=== PATIENT | female | born 1950 | race Caucasian/White ===

== ENCOUNTER 2018-03-14 15:26 | Emergency (ER) | payer MEDICARE, BC ==
[2018-03-14] MEDS ORDERED: Ondansetron 4 MG/2 ML SDV ONE (15:44)
[2018-03-14] MEDS ORDERED: Ondansetron 4 MG/2 ML SDV IVPUSH ONE (15:46)
[2018-03-14] MEDS ORDERED: LORazepam 2 MG/ML SDV IVPUSH ONE (15:46)
[2018-03-14] MEDS ORDERED: Sodium Chloride 0.9% 10 ML Syringe FLUSH PRN (15:46)
[2018-03-14] MEDS ORDERED: Sodium Chloride 0.9% 1,000 ML IV SCH ×2 (16:00→17:20)
--- NOTE | 2018-03-14 16:00 | EDM.PDOC ---
ED HPI GENERAL MEDICAL PROBLEM - General Stated Complaint: VOMITTING Time Seen by Provider: 03/14/18 15:45 Source of Information: Reports: Patient - History of Present Illness INITIAL COMMENTS - FREE TEXT/NARRATIVE: Janelle Complains of abdominal pain that is uncontrollable. This week she was at the [facility] and was diagnosed with uterine cancer. She had 2.5 L of ascitic fluid drained, and was discharged home to follow-up this Wednesday at [facility] in [place], [place]. However she is not able to keep anything down,and The pain is uncontrollable by oral Dilaudid. Abdomen Pain Score (Numeric/FACES): 8 - Related Data Allergies Allergy/AdvReac Type Severity Reaction Status Date / Time Penicillins Allergy Rash Verified 03/14/18 16:03 ED ROS GENERAL - Review of Systems Review Of Systems: ROS reveals no pertinent complaints other than HPI. ED EXAM, GI/ABD - Physical Exam Exam: See Below Exam Limited By: No Limitations General Appearance: Alert, No Apparent Distress, Lethargic Ears: Normal TMs Nose: Normal Inspection Throat/Mouth: Other (Dry mucous membranes) Head: Atraumatic, Normocephalic Neck: Normal Inspection, Supple, Non-Tender, Full Range of Motion Respiratory/Chest: No Respiratory Distress Cardiovascular: Normal Peripheral Pulses. No: Other GI/Abdominal Exam: Distended, Guarding, Rigid, Tender, Other (Ascites) Skin Exam: Warm Course - Vital Signs Text/Narrative:: Bolus 1 L normal saline given,along with fentanyl and lorazepam. Oxygen sats dropped somewhat and 2 L of oxygen initially placed by nasal cannula. I discussed with the family about transferring and they are agreeable to transfer to [facility]. Last Recorded V/S: Last Vital Signs Temp 97.4 F 03/14/18 15:26 Pulse 95 03/14/18 15:26 Resp 18 03/14/18 15:26 BP 140/78 03/14/18 15:26 Pulse Ox 94 L 03/14/18 15:26 - Orders/Labs/Meds Orders: Active Orders 24 hr Category Date Time Status CBC WITH AUTO DIFF [HEME] Stat Lab 03/14/18 16:20 Results Sodium Chloride 0.9% [Normal Saline] 1,000 ml Med 03/14/18 16:00 Active IV ASDIRECTED Sodium Chloride 0.9% [Saline Flush] Med 03/14/18 15:46 Active 10 ml FLUSH ASDIRECTED PRN Peripheral IV Insertion Adult [OM.PC] Routine Oth 03/14/18 15:46 Ordered Medication Orders Sodium Chloride (Normal Saline) 1,000 mls @ 999 mls/hr IV ASDIRECTED NINI Last Admin: 03/14/18 16:18 Dose: 999 mls/hr Sodium Chloride (Saline Flush) 10 ml FLUSH ASDIRECTED PRN PRN Reason: Keep Vein Open Last Admin: 03/14/18 16:31 Dose: 10 ml Labs: Laboratory Tests 03/14/18 03/14/18 Range/Units 16:20 16:20 WBC 10.7 (4.5-12.0) X10-3/uL RBC 3.82 (3.23-5.20) x10(6)uL Hgb 11.1 L (11.5-15.5) g/dL Hct 32.5 (30.0-51.3) % MCV 85.1 (80-96) fL MCH 29.2 (27.7-33.6) pg MCHC 34.3 (32.2-35.4) g/dL RDW 13.5 (11.5-15.5) % Plt Count 544 H (125-369) X10(3)uL MPV 7.9 (7.4-10.4) fL Add Manual Diff Yes Sodium 135 (135-145) mmol/L Potassium 3.4 L (3.5-5.3) mmol/L Chloride 98 L (100-110) mmol/L Carbon Dioxide 26 (21-32) mmol/L BUN 14 (7-18) mg/dL Creatinine 0.6 (0.55-1.02) mg/dL Est Cr Clr Drug Dosing 77.49 mL/min Estimated GFR (MDRD) > 60 (>60) BUN/Creatinine Ratio 23.3 H (9-20) Glucose 102 (80-116) mg/dL Calcium 8.3 L (8.6-10.2) mg/dL Total Bilirubin 0.4 (0.1-1.3) mg/dL AST 28 H (5-25) IU/L ALT 18 (12-36) U/L Alkaline Phosphatase 111 (56-112) IU/L Total Protein 6.2 (6.0-8.0) g/dL Albumin 1.8 L (3.2-4.6) g/dL Globulin 4.4 g/dL Albumin/Globulin Ratio 0.4 Meds: Medications Generic Name Dose Route Start Last Admin Trade Name Freq PRN Reason Stop Dose Admin Sodium Chloride 1,000 mls @ 999 mls/hr 03/14/18 16:00 03/14/18 16:18 Normal Saline IV 999 mls/hr ASDIRECTED NINI Administration Sodium Chloride 10 ml 03/14/18 15:46 03/14/18 16:31 Saline Flush FLUSH 10 ml ASDIRECTED PRN Administration Keep Vein Open Discontinued Medications Generic Name Dose Route Start Last Admin Trade Name Freq PRN Reason Stop Dose Admin Fentanyl 100 mcg 03/14/18 15:48 03/14/18 16:24 Sublimaze IVPUSH 03/14/18 15:49 100 mcg ONETIME ONE Administration Lorazepam 1 mg 03/14/18 15:46 03/14/18 16:26 Ativan IVPUSH 03/14/18 15:47 1 mg ONETIME ONE Administration Ondansetron HCl Confirm 03/14/18 15:44 03/14/18 16:28 Zofran Administered 03/14/18 15:45 Not Given Dose 4 mg .ROUTE .STK-MED ONE Ondansetron HCl 8 mg 03/14/18 15:46 03/14/18 16:19 Zofran IVPUSH 03/14/18 15:47 8 mg ONETIME ONE Administration Departure - Departure Time of Disposition: 17:07 Disposition: DC/Tfer to [facility] 02 Clinical Impression: Uterine cancer, Dehydration, Ascites, Abdominal pain - Discharge Information Referrals: Westley Fitzpatrick MD [Primary Care Provider] - - Problem List & Annotations (1) Ascites SNOMED Code(s): 297499252 Code(s): R18.8 - OTHER ASCITES Status: Acute Current Visit: No Qualifiers: Ascites type: malignant Qualified Code(s): R18.0 - Malignant ascites (2) Dehydration SNOMED Code(s): 92863725 Code(s): E86.0 - DEHYDRATION Status: Acute Current Visit: No (3) Uterine cancer SNOMED Code(s): 474252375 Code(s): C55 - MALIGNANT NEOPLASM OF UTERUS, PART UNSPECIFIED Status: Acute Current Visit: No - Problem List Review Problem List Initiated/Reviewed/Updated: Yes - My Orders Last 24 Hours: My Active Orders 03/14/18 15:46 Sodium Chloride 0.9% [Saline Flush] 10 ml FLUSH ASDIRECTED PRN Peripheral IV Insertion Adult [OM.PC] Routine 03/14/18 16:00 Sodium Chloride 0.9% [Normal Saline] 1,000 ml IV ASDIRECTED 03/14/18 16:20 CBC WITH AUTO DIFF [HEME] Stat - Assessment/Plan Last 24 Hours: My Active Orders 03/14/18 15:46 Sodium Chloride 0.9% [Saline Flush] 10 ml FLUSH ASDIRECTED PRN Peripheral IV Insertion Adult [OM.PC] Routine 03/14/18 16:00 Sodium Chloride 0.9% [Normal Saline] 1,000 ml IV ASDIRECTED 03/14/18 16:20 CBC WITH AUTO DIFF [HEME] Stat Plan: Patient will be transferred [facility], after I spoke with the hospitalist on- call. This is for higher level care -to consult with oncology with whom she already has an appointment on Wednesday.
[2018-03-14] MEDS: fentaNYL 100 MCG/2 ML SDV IVPUSH ONE ×2 (16:24→17:59)
[2018-03-14] MEDS ORDERED: fentaNYL 100 MCG/2 ML SDV IVPUSH ONE (17:00)
== END 2018-03-14 18:00 ==
LOC: FB.ED 15:26
DX: C54.1 Malignant neoplasm of endometrium (principal); R18.8 Other ascites; E86.0 Dehydration; Z88.0 Allergy status to penicillin
CPT/HCPCS: 80053; 85025; 96361; 96374; 96375; 99285; J2060; J2405; J3010; J7030; J7050